=== PATIENT | female | born 1940 | race Caucasian/White ===

== ENCOUNTER → 2017-12-02 | Outpatient (CLI) | payer MEDICARE ==
[~2017-12-02] MED LIST: ARTHROTEC 75 T1 EACH PO; ASPIRIN81 M2 PO; FISH OIL 1,2001 EAC5 PO; HYDROCODONE-AP1 EACH PO; IOPAMIDOL 370 MG/ML 200 ML INFUS..BTL INJ ONE; MECLIZINE HCL12.5 MG PO; POTASSIUM GLUCONATE PO; SODIUM CHLORIDE 0.9% 250ML 500 ML ONE; SODIUM CHLORIDE 0.9% 50ML 50 ML ONE; VIT D3 PO; VITAMIN E PO; Z ALPRAZOLAM PO; Z CO Q PO; Z.0.B-12250 MCG; Z.0.DICYCLOMINE HCL1 PO; Z.0.FOLIC ACID0.4 MG PO; Z.0.FUROSEMIDE40 MG PO; Z.0.LOMOTIL TABLET1 PO; Z.0.MECLIZINE HCL12. PO; Z.0.NEXIUM40 MG PO; Z.0.SERTRALINE HCL10 PO; Z.0.SINGULAIR10 MG PO; Z.0.TRAZODONE HCL100 PO; Z.0.VITAMIN C500 M1 PO; Z.1.CENTRUM SILVER1 PO; Z.1.LEVOTHYROXINE100 PO; Z.1.TIZANIDINE HCL4 PO; Z.2.METFORMIN HCL500 PO; [UNRECOGNIZED DRUG - OTHER] NS; [UNRECOGNIZED DRUG - OTHER] PO; [UNRECOGNIZED DRUG - OTHER] PO
[2017-12-02 09:02] LABS: CREATININE, SERUM 1.02 mg/dL (0.57-1.11)
--- NOTE | 2017-12-02 12:25 | Diagnostic Imaging Report ---
PROCEDURE: CT ABDOMEN WITH CONTRAST TECHNIQUE: The abdomen was scanned utilizing a multidetector helical scanner from the diaphragm to the iliac crest after the IV administration of 100 cc of Isovue 370 and the oral administration of water. Coronal and sagittal multiplanar reformations were obtained. COMPARISON: None. INDICATIONS: ABNORMAL LIVER FUNCTION TESTS FINDINGS: LOWER THORAX: Normal. HEPATOBILIARY: No focal hepatic lesions. No biliary ductal dilatation. Normal gallbladder. SPLEEN: No splenomegaly. PANCREAS: No focal masses or ductal dilatation. ADRENALS: No adrenal nodules. KIDNEYS: No hydronephrosis, stones, or solid mass lesions. PERITONEUM / RETROPERITONEUM: No free air or fluid. LYMPH NODES: No lymphadenopathy. VESSELS: Aortoiliac atherosclerotic calcifications. GI TRACT: Visualized portions of the bowel demonstrate no distention or wall thickening. BONES AND SOFT TISSUES: Degenerative changes of the lower thoracic and upper lumbar spine. IMPRESSION: No acute abnormality of the abdomen. Dictated by: Seth Pitt M.D. on 12/02/2017 at 12:26 Electronically approved by: Seth Pitt M.D. on 12/02/2017 at 12:26
== END ==
LOC: CT 08:07
PROVIDERS: ATTEND Family Medicine
DX: R94.5 Abnormal results of liver function studies (principal)
CPT/HCPCS: 36415; 74160; 82565; 84520; J7050; Q9967

== ENCOUNTER → 2018-08-29 | Outpatient (CLI) | payer MEDICARE ==
[~2018-08-29] MED LIST changes: -IOPAMIDOL 370 MG/ML 200 ML INFUS..BTL INJ ONE; -SODIUM CHLORIDE 0.9% 250ML 500 ML ONE; -SODIUM CHLORIDE 0.9% 50ML 50 ML ONE
--- NOTE | 2018-08-29 12:01 | Diagnostic Imaging Report ---
PROCEDURE: X-RAY CHEST, TWO VIEWS COMPARISON: [facility], DX, CHEST 2 VIEWS, 02/25/2012, 12:46. INDICATIONS: COUGH, HEADACHE FINDINGS: LUNGS: No consolidations or edema. No change in the nodular calcified opacities in the apical regions. There is evidence of biapical volume loss. PLEURA: No effusions or pneumothorax. HEART & MEDIASTINUM: The heart is within normal size-limits. Tenting of the left hemidiaphragm is noted. BONES & SOFT TISSUES: No acute findings. Mild wedge deformity of one of the upper thoracic spine vertebral bodies is present and new compared to prior study. CONCLUSION: No acute thoracic abnormality. Kendrick Hernandez D.O. Dictated by: Kendrick Hernandez D.O. on 08/29/2018 at 12:12 Electronically approved by: Kendrick Hernandez D.O. on 08/29/2018 at 12:12
== END ==
LOC: RAD 10:45
DX: R05 Cough (principal)
CPT/HCPCS: 71046

== ENCOUNTER 2021-09-13 14:34 | Emergency (ER) | payer MEDICARE ==
[~2021-09-13] VITALS: Ht 167.6 cm; Wt 76.0 kg
[2021-09-13] MEDS ORDERED: TRAMADOL HCL 50 MG TAB PO STA (14:57)
[2021-09-13] MEDS ORDERED: OMEPRAZOLE20 MG (15:11)
[2021-09-13] MEDS ORDERED: DOXYCYCLINE HYC20 MG (15:11)
[2021-09-13] MEDS ORDERED: CLOPIDOGREL75 MG PO (15:11)
[2021-09-13] MEDS ORDERED: LEVOCETIRIZINE D5 MG (15:11)
[2021-09-13] MEDS ORDERED: VENLAFAXINE HC100 MG (15:11)
[2021-09-13] MEDS ORDERED: TRULICITY1.5 MG/0.5 (15:11)
[2021-09-13] MEDS ORDERED: EPINEPHRIN (15:11)
[2021-09-13] MEDS ORDERED: HUMALOG MI100 UNIT/2 SQ (15:11)
[2021-09-13] MEDS ORDERED: SYNTHROID75 MCG PO (15:11)
[2021-09-13] MEDS ORDERED: METOPROLOL SUCC25 MG PO (15:11)
[2021-09-13] MEDS ORDERED: DYMISTA NASAL S23 GM INH (15:11)
[2021-09-13] MEDS ORDERED: CLONIDINE HCL0.1 MG PO (15:11)
[2021-09-13] MEDS ORDERED: HYDROCHLOROTHIA25 MG (15:11)
[2021-09-13] MEDS ORDERED: LANTUS 3ML100 UNITS/ (15:11)
[2021-09-13] MEDS ORDERED: ULTRAM 50MG50 MG PO (15:32)
== END 2021-09-13 16:09 | disposition home or self-care (01) ==
LOC: FSED 14:47
DX: M25.562 Pain in left knee (principal); R11.0 Nausea; F41.9 Anxiety disorder, unspecified; M19.09 Primary osteoarthritis, other specified site; Z87.19 Personal history of other diseases of the digestive system
CPT/HCPCS: 99283

== ENCOUNTER 2022-04-13 15:15 | Inpatient (IN) | payer MEDICARE ==
[~2022-04-13] VITALS: Ht 167.6 cm; Wt 75.7 kg
[~2022-04-13 15:15] MED LIST changes: +CLONIDINE HCL0.1 MG PO; +CLOPIDOGREL75 MG PO; +DOXYCYCLINE HYC20 MG; +DYMISTA NASAL S23 GM INH; +EPINEPHRIN IM; +HUMALOG MI100 UNIT/2 SQ; +HYDROCHLOROTHIA25 MG PO; +LANTUS 3ML100 UNITS/ SQ; +LEVOCETIRIZINE D5 MG PO; +METOPROLOL SUCC25 MG PO; +OMEPRAZOLE20 MG PO; +SYNTHROID75 MCG PO; +TRULICITY1.5 MG/0.5; +ULTRAM 50MG50 MG PO; +VENLAFAXINE HC100 MG PO
[2022-04-13 16:52] LABS: BASOPHILS % 0.2 % (0.0-1.0); EOSINOPHILS % 0.2 % (0.0-6.0); HEMATOCRIT 25.5 % (34.2-44.1); HEMOGLOBIN 7.1 g/dL (12.0-16.0); LYMPHOCYTES # (AUTO) 1.2 (1.0-3.2); LYMPHOCYTES % 9.2 % (18.0-39.1); MEAN CORPUSCULAR HEMOGLOBIN 18.5 pg (28-32); MEAN CORPUSCULAR HGB CONC 27.8 g/dL (31-35); MEAN CORPUSCULAR VOLUME 66.6 fL (81-99); MONOCYTES # (AUTO) 0.8 (0.2-0.8); MONOCYTES % 6.5 % (4.4-11.3); NEUTROPHILS # (AUTO) 10.8 (2.1-6.9); NEUTROPHILS % 83.5 % (38.7-80.0); PLATELET COUNT 306 x10e3/uL (140-360); RED BLOOD COUNT 3.83 x10e6/uL (3.6-5.1); RED CELL DISTRIBUTION WIDTH 20.2 % (11.7-14.4)
[2022-04-13 17:04] LABS: ALBUMIN 3.4 g/dL (3.5-5.0); ALBUMIN/GLOBULIN RATIO 0.9 (0.8-2.0); ANION GAP 18.1 mmol/L (8-16); CALCIUM 9.3 mg/dL (8.4-10.2); CREATININE, SERUM 1.42 mg/dL (0.57-1.11); POTASSIUM 3.1 mmol/L (3.5-5.1)
[2022-04-13] MEDS: Vancomycin IV 1 GM in SODIUM CHLORIDE 0.9% 250ML 250 ML IV SCH (17:25)
[2022-04-13] MEDS ORDERED: ONDANSETRON HCL INJ 2MG/ML 2ML 2 MG/ML VIAL IV PRN (17:30)
[2022-04-13 19:36] VITALS: BP 84/70
[2022-04-13] MEDS ORDERED: MELOXICAM7.5 MG PO (20:33)
[2022-04-13] MEDS ORDERED: KAPSPARGO SPRIN25 MG PO (20:38)
[2022-04-13] MEDS ORDERED: GLUCOTROL XL5 MG PO (20:53)
[2022-04-13 21:00] VITALS: BP 84/70
[2022-04-13] MEDS ORDERED: TRULICITY4.5 MG/0.5 SQ (21:58)
[2022-04-13 23:30] VITALS: BP 84/70
[2022-04-13 23:57] VITALS: BP 106/47
[2022-04-14] VITALS (8 sets, daily range): BP systolic 122–134; BP diastolic 47–61
[2022-04-14] MEDS: HYDROCODONE/APAP 5MG-325MG TAB PO PRN ×2 (01:04→23:43)
[2022-04-14] MEDS: Vancomycin IV 1 GM in SODIUM CHLORIDE 0.9% 250ML 250 ML IV SCH ×2 (05:14→17:14)
[2022-04-14 06:18] LABS: ALBUMIN/GLOBULIN RATIO 0.9 (0.8-2.0); ALKALINE PHOSPHATASE 119 IU/L (40-150); ANION GAP 14.8 mmol/L (8-16); BLOOD UREA NITROGEN 19 mg/dL (7-26); BUN/CREATININE RATIO 16 (6-25); CALCIUM 8.8 mg/dL (8.4-10.2); CARBON DIOXIDE 27 mmol/L (22-29); CHLORIDE 100 mmol/L (98-107); CREATININE, SERUM 1.22 mg/dL (0.57-1.11); GLUCOSE 170 mg/dL (74-118); SODIUM 139 mmol/L (136-145)
[2022-04-14 06:19] LABS: ALANINE AMINOTRANSFERASE < 6 IU/L (0-55)
[2022-04-14 06:20] LABS: POTASSIUM 2.8 mmol/L (3.5-5.1)
[2022-04-14] MEDS ORDERED: DEXTROSE 50% SYRINGE 50 ML IV PRN (06:30)
[2022-04-14] MEDS ORDERED: MECLIZINE HCL 12.5 MG TAB PO PRN (06:30)
[2022-04-14] MEDS ORDERED: NON-FORMULARY MEDICATION (Levocetirizine Dihydrochloride 5 MG) PO PRN (06:30)
[2022-04-14] MEDS ORDERED: EPINEPHRINE HCL SYRINGE INJ PRN (06:30)
[2022-04-14] MEDS: LEVOTHYROXINE SODIUM 75 MCG TAB PO SCH (06:52)
[2022-04-14] MEDS ORDERED: POTASSIUM CHLORIDE 20 MEQ TAB CR PO ONE ×3 (07:00→08:00)
[2022-04-14] MEDS ORDERED: LORATADINE 10 MG TAB PO PRN (07:15)
[2022-04-14] MEDS: GLIPIZIDE 5 MG TAB ER PO SCH (08:19)
[2022-04-14] MEDS: PANTOPRAZOLE SOD 40 MG TABEC PO SCH (08:19)
[2022-04-14] MEDS: INSULIN REGULAR, HUMAN 100 UNIT/1 ML SQ SCH ×4 (08:20→22:19)
[2022-04-14] MEDS: VENLAFAXINE HCL 75 MG TAB PO SCH (08:40)
[2022-04-14] MEDS: MELOXICAM 7.5 MG TAB PO SCH (08:41)
[2022-04-14] MEDS: MONTELUKAST SODIUM 10 MG TAB PO SCH (08:41)
[2022-04-14] MEDS: CLONIDINE HCL 0.1 MG TAB PO SCH ×2 (08:42→17:15)
[2022-04-14] MEDS: HYDROCHLOROTHIAZIDE 25 MG TAB PO SCH (08:42)
[2022-04-14] MEDS: CLOPIDOGREL BISULFATE 75 MG TAB PO SCH (08:42)
[2022-04-14] MEDS ORDERED: METOPROLOL SUCCINATE 25 MG PO SCH (09:00)
[2022-04-14] MEDS: INSULIN GLARGINE 100 UNITS/ML VIAL SQ SCH (09:37)
[2022-04-14] MEDS: INS LISP PRO/LISP HUMAN 75/25 100 UNITS/ML VIAL SC SCH ×3 (09:38→17:00)
[2022-04-14] MEDS ORDERED: METOPROLOL SUCCINATE 25 MG TAB XL PO SCH (10:00)
[2022-04-14 12:35] LABS: FREE THYROXINE INDEX 2.4341 (1.4-3.8); THYROID STIMULATING HORMONE 0.396 uIU/mL (0.350-4.940)
[2022-04-14] MEDS: METOPROLOL SUCCINATE 25 MG TAB XL PO SCH (22:16)
[2022-04-14] MEDS: ALPRAZOLAM 0.25 MG TAB PO PRN (23:42)
[2022-04-15 04:28] VITALS: BP 133/59
[2022-04-15 04:59] LABS: BASOPHILS # (AUTO) 0.1 (0.0-0.1); BASOPHILS % 0.9 % (0.0-1.0); EOSINOPHILS # (AUTO) 0.3 (0.0-0.4); EOSINOPHILS % 4.3 % (0.0-6.0); HEMATOCRIT 24.7 % (34.2-44.1); LYMPHOCYTES # (AUTO) 1.5 (1.0-3.2); LYMPHOCYTES % 23.4 % (18.0-39.1); MEAN CORPUSCULAR HEMOGLOBIN 18.4 pg (28-32); MEAN CORPUSCULAR HGB CONC 27.1 g/dL (31-35); MEAN CORPUSCULAR VOLUME 67.9 fL (81-99); MONOCYTES # (AUTO) 0.6 (0.2-0.8); NEUTROPHILS # (AUTO) 4.1 (2.1-6.9); NEUTROPHILS % 61.9 % (38.7-80.0); PLATELET COUNT 268 x10e3/uL (140-360); RED BLOOD COUNT 3.64 x10e6/uL (3.6-5.1); RED CELL DISTRIBUTION WIDTH 20.1 % (11.7-14.4)
[2022-04-15 05:05] LABS: HEMOGLOBIN 6.7 g/dL (12.0-16.0)
[2022-04-15 05:20] LABS: ANION GAP 14.6 mmol/L (8-16); CALCIUM 9.2 mg/dL (8.4-10.2); POTASSIUM 3.6 mmol/L (3.5-5.1)
[2022-04-15] MEDS: Vancomycin IV 1 GM in SODIUM CHLORIDE 0.9% 250ML 250 ML IV SCH (06:00)
[2022-04-15] MEDS ORDERED: SODIUM CHLORIDE 0.9% 250ML 250 ML IV ONE (06:30)
[2022-04-15] MEDS ORDERED: DIPHENHYDRAMINE HCL INJ 50 MG/ML VIAL IV ONE (06:30)
[2022-04-15] MEDS: LEVOTHYROXINE SODIUM 75 MCG TAB PO SCH (06:45)
[2022-04-15] MEDS: INSULIN REGULAR, HUMAN 100 UNIT/1 ML SQ SCH ×4 (07:30→21:00)
[2022-04-15] MEDS: PANTOPRAZOLE SOD 40 MG TABEC PO SCH (07:30)
[2022-04-15 08:00] VITALS: BP 136/65
[2022-04-15] MEDS: GLIPIZIDE 5 MG TAB ER PO SCH (08:00)
[2022-04-15 08:30] VITALS: BP 136/65
[2022-04-15] MEDS: VENLAFAXINE HCL 75 MG TAB PO SCH (09:27)
[2022-04-15] MEDS: CLOPIDOGREL BISULFATE 75 MG TAB PO SCH (09:27)
[2022-04-15] MEDS: MONTELUKAST SODIUM 10 MG TAB PO SCH (09:27)
[2022-04-15] MEDS: METOPROLOL SUCCINATE 25 MG TAB XL PO SCH ×2 (09:28→21:04)
[2022-04-15] MEDS: MELOXICAM 7.5 MG TAB PO SCH (09:28)
[2022-04-15] MEDS: HYDROCHLOROTHIAZIDE 25 MG TAB PO SCH (09:29)
[2022-04-15] MEDS: INS LISP PRO/LISP HUMAN 75/25 100 UNITS/ML VIAL SC SCH ×3 (09:37→16:30)
[2022-04-15] MEDS: INSULIN GLARGINE 100 UNITS/ML VIAL SQ SCH (09:41)
[2022-04-15] MEDS: CLONIDINE HCL 0.1 MG TAB PO SCH ×2 (09:42→16:01)
[2022-04-15] MEDS ORDERED: ONDANSETRON HCL 4 MG ORAL DISINTEGRATING TAB PO PRN (11:00)
[2022-04-15 11:47] VITALS: BP 121/42
[2022-04-15 16:50] VITALS: BP 130/58
[2022-04-15 20:00] VITALS: BP 141/65
[2022-04-15] MEDS ORDERED: SODIUM CHLORIDE 0.9% 250ML 250 ML ONE (20:43)
[2022-04-15] MEDS: ALPRAZOLAM 0.25 MG TAB PO PRN (23:18)
[2022-04-15] MEDS: HYDROCODONE/APAP 5MG-325MG TAB PO PRN (23:19)
[2022-04-16] VITALS (7 sets, daily range): BP systolic 135–168; BP diastolic 59–82
[2022-04-16] MEDS: LEVOTHYROXINE SODIUM 75 MCG TAB PO SCH (06:08)
[2022-04-16] MEDS: INSULIN REGULAR, HUMAN 100 UNIT/1 ML SQ SCH ×4 (07:30→21:00)
[2022-04-16] MEDS: INS LISP PRO/LISP HUMAN 75/25 100 UNITS/ML VIAL SC SCH ×3 (08:00→17:08)
[2022-04-16] MEDS: GLIPIZIDE 5 MG TAB ER PO SCH ×2 (08:00→09:52)
[2022-04-16] MEDS: PANTOPRAZOLE SOD 40 MG TABEC PO SCH (08:28)
[2022-04-16] MEDS: INSULIN GLARGINE 100 UNITS/ML VIAL SQ SCH (09:00)
[2022-04-16 09:02] LABS: BASOPHILS # (AUTO) 0.1 (0.0-0.1); BASOPHILS % 0.8 % (0.0-1.0); EOSINOPHILS # (AUTO) 0.4 (0.0-0.4); EOSINOPHILS % 4.9 % (0.0-6.0); HEMATOCRIT 32.4 % (34.2-44.1); HEMOGLOBIN 9.4 g/dL (12.0-16.0); LYMPHOCYTES % 26.3 % (18.0-39.1); MEAN CORPUSCULAR HEMOGLOBIN 20.8 pg (28-32); MEAN CORPUSCULAR VOLUME 71.5 fL (81-99); MONOCYTES # (AUTO) 0.6 (0.2-0.8); MONOCYTES % 8.4 % (4.4-11.3); NEUTROPHILS # (AUTO) 4.4 (2.1-6.9); NEUTROPHILS % 59.2 % (38.7-80.0); PLATELET COUNT 259 x10e3/uL (140-360); RED BLOOD COUNT 4.53 x10e6/uL (3.6-5.1)
[2022-04-16] MEDS: VENLAFAXINE HCL 75 MG TAB PO SCH (09:52)
[2022-04-16] MEDS: MONTELUKAST SODIUM 10 MG TAB PO SCH (09:52)
[2022-04-16] MEDS: MELOXICAM 7.5 MG TAB PO SCH (09:53)
[2022-04-16] MEDS: HYDROCHLOROTHIAZIDE 25 MG TAB PO SCH (09:53)
[2022-04-16] MEDS: CLOPIDOGREL BISULFATE 75 MG TAB PO SCH (09:53)
[2022-04-16] MEDS: CLONIDINE HCL 0.1 MG TAB PO SCH ×2 (09:54→17:12)
[2022-04-16] MEDS: METOPROLOL SUCCINATE 25 MG TAB XL PO SCH ×2 (09:54→21:00)
[2022-04-16] MEDS ORDERED: IRON DEXTRAN INJ 50 MG in SODIUM CHLORIDE 0.9% 100 ML IV ONE (17:30)
[2022-04-16] MEDS: ALPRAZOLAM 0.25 MG TAB PO PRN (22:38)
[2022-04-16] MEDS: HYDROCODONE/APAP 5MG-325MG TAB PO PRN (22:40)
[2022-04-17] VITALS: BP 136/68
[2022-04-17 04:00] VITALS: BP 112/50
[2022-04-17] MEDS: LEVOTHYROXINE SODIUM 75 MCG TAB PO SCH (05:22)
[2022-04-17 07:07] LABS: BASOPHILS # (AUTO) 0.1 (0.0-0.1); BASOPHILS % 0.7 % (0.0-1.0); EOSINOPHILS # (AUTO) 0.3 (0.0-0.4); EOSINOPHILS % 3.8 % (0.0-6.0); HEMATOCRIT 33.7 % (34.2-44.1); HEMOGLOBIN 9.8 g/dL (12.0-16.0); LYMPHOCYTES # (AUTO) 2.3 (1.0-3.2); LYMPHOCYTES % 25.6 % (18.0-39.1); MEAN CORPUSCULAR HEMOGLOBIN 20.7 pg (28-32); MEAN CORPUSCULAR HGB CONC 29.1 g/dL (31-35); MEAN CORPUSCULAR VOLUME 71.1 fL (81-99); MONOCYTES # (AUTO) 0.6 (0.2-0.8); MONOCYTES % 6.8 % (4.4-11.3); NEUTROPHILS # (AUTO) 5.5 (2.1-6.9); NEUTROPHILS % 62.9 % (38.7-80.0); PLATELET COUNT 297 x10e3/uL (140-360); RED BLOOD COUNT 4.74 x10e6/uL (3.6-5.1); RED CELL DISTRIBUTION WIDTH 21.1 % (11.7-14.4)
[2022-04-17] MEDS: INSULIN REGULAR, HUMAN 100 UNIT/1 ML SQ SCH ×4 (07:30→20:28)
[2022-04-17 07:38] LABS: ANION GAP 18.7 mmol/L (8-16); CALCIUM 9.2 mg/dL (8.4-10.2); CREATININE, SERUM 0.97 mg/dL (0.57-1.11); POTASSIUM 3.7 mmol/L (3.5-5.1)
[2022-04-17] MEDS: INS LISP PRO/LISP HUMAN 75/25 100 UNITS/ML VIAL SC SCH ×3 (08:00→17:00)
[2022-04-17 08:30] VITALS: BP 123/57
[2022-04-17] MEDS: INSULIN GLARGINE 100 UNITS/ML VIAL SQ SCH (09:00)
[2022-04-17] MEDS ORDERED: DULAGLUTIDE SQ SCH (09:00)
[2022-04-17] MEDS: CLONIDINE HCL 0.1 MG TAB PO SCH ×2 (09:00→17:00)
[2022-04-17] MEDS: PANTOPRAZOLE SOD 40 MG TABEC PO SCH (10:00)
[2022-04-17] MEDS: METOPROLOL SUCCINATE 25 MG TAB XL PO SCH ×2 (10:30→21:19)
[2022-04-17] MEDS: HYDROCHLOROTHIAZIDE 25 MG TAB PO SCH (10:30)
[2022-04-17] MEDS: MONTELUKAST SODIUM 10 MG TAB PO SCH (10:30)
[2022-04-17] MEDS: VENLAFAXINE HCL 75 MG TAB PO SCH (10:30)
[2022-04-17] MEDS: MELOXICAM 7.5 MG TAB PO SCH (10:30)
[2022-04-17] MEDS: CLOPIDOGREL BISULFATE 75 MG TAB PO SCH (10:30)
[2022-04-17 12:46] VITALS: BP 143/83
[2022-04-17 16:49] VITALS: BP 135/73
[2022-04-17 20:00] VITALS: BP 144/67
[2022-04-17] MEDS: HYDROCODONE/APAP 5MG-325MG TAB PO PRN (21:25)
[2022-04-18 04:00] VITALS: BP 132/57
[2022-04-18 05:22] LABS: BASOPHILS # (AUTO) 0.1 (0.0-0.1); BASOPHILS % 0.7 % (0.0-1.0); EOSINOPHILS # (AUTO) 0.5 (0.0-0.4); EOSINOPHILS % 5.2 % (0.0-6.0); HEMATOCRIT 32.6 % (34.2-44.1); HEMOGLOBIN 9.9 g/dL (12.0-16.0); LYMPHOCYTES # (AUTO) 2.2 (1.0-3.2); MEAN CORPUSCULAR HEMOGLOBIN 20.8 pg (28-32); MEAN CORPUSCULAR HGB CONC 30.4 g/dL (31-35); MEAN CORPUSCULAR VOLUME 68.5 fL (81-99); MONOCYTES # (AUTO) 0.7 (0.2-0.8); MONOCYTES % 7.5 % (4.4-11.3); NEUTROPHILS # (AUTO) 5.3 (2.1-6.9); NEUTROPHILS % 61.1 % (38.7-80.0); PLATELET COUNT 253 x10e3/uL (140-360); RED BLOOD COUNT 4.76 x10e6/uL (3.6-5.1); RED CELL DISTRIBUTION WIDTH 21.7 % (11.7-14.4)
[2022-04-18] MEDS: LEVOTHYROXINE SODIUM 75 MCG TAB PO SCH (05:35)
[2022-04-18 05:45] LABS: ALBUMIN 2.9 g/dL (3.5-5.0); ALBUMIN/GLOBULIN RATIO 0.9 (0.8-2.0); ANION GAP 18.5 mmol/L (8-16); CALCIUM 9.2 mg/dL (8.4-10.2); CREATININE, SERUM 1.01 mg/dL (0.57-1.11); POTASSIUM 3.5 mmol/L (3.5-5.1)
[2022-04-18] MEDS: INSULIN REGULAR, HUMAN 100 UNIT/1 ML SQ SCH ×4 (07:30→21:00)
[2022-04-18] MEDS: INS LISP PRO/LISP HUMAN 75/25 100 UNITS/ML VIAL SC SCH ×3 (08:00→17:00)
[2022-04-18 08:27] VITALS: BP 146/70
[2022-04-18] MEDS: VENLAFAXINE HCL 75 MG TAB PO SCH (09:00)
[2022-04-18] MEDS: HYDROCHLOROTHIAZIDE 25 MG TAB PO SCH (09:00)
[2022-04-18] MEDS: INSULIN GLARGINE 100 UNITS/ML VIAL SQ SCH (09:00)
[2022-04-18] MEDS ORDERED: POTASSIUM CHLORIDE 10MEQ EA PO ONE (10:00)
[2022-04-18] MEDS: GLIPIZIDE 5 MG TAB ER PO SCH (11:04)
[2022-04-18] MEDS: MELOXICAM 7.5 MG TAB PO SCH (11:04)
[2022-04-18] MEDS: CLOPIDOGREL BISULFATE 75 MG TAB PO SCH (11:05)
[2022-04-18] MEDS: CLONIDINE HCL 0.1 MG TAB PO SCH ×2 (11:05→17:23)
[2022-04-18] MEDS: METOPROLOL SUCCINATE 25 MG TAB XL PO SCH ×2 (11:06→21:11)
[2022-04-18] MEDS: PANTOPRAZOLE SOD 40 MG TABEC PO SCH (11:08)
[2022-04-18] MEDS: MONTELUKAST SODIUM 10 MG TAB PO SCH (11:08)
[2022-04-18 13:24] VITALS: BP 146/73
[2022-04-18 17:32] VITALS: BP 128/68
[2022-04-18 20:00] VITALS: BP 128/67
[2022-04-19] VITALS (8 sets, daily range): BP systolic 118–174; BP diastolic 52–78
[2022-04-19] MEDS: LEVOTHYROXINE SODIUM 75 MCG TAB PO SCH (05:22)
[2022-04-19 05:47] LABS: BASOPHILS # (AUTO) 0.1 (0.0-0.1); BASOPHILS % 0.9 % (0.0-1.0); EOSINOPHILS # (AUTO) 0.5 (0.0-0.4); EOSINOPHILS % 6.1 % (0.0-6.0); HEMATOCRIT 31.4 % (34.2-44.1); HEMOGLOBIN 9.3 g/dL (12.0-16.0); LYMPHOCYTES # (AUTO) 2.2 (1.0-3.2); LYMPHOCYTES % 26.1 % (18.0-39.1); MEAN CORPUSCULAR HEMOGLOBIN 20.6 pg (28-32); MEAN CORPUSCULAR HGB CONC 29.6 g/dL (31-35); MEAN CORPUSCULAR VOLUME 69.6 fL (81-99); MONOCYTES # (AUTO) 0.6 (0.2-0.8); MONOCYTES % 7.4 % (4.4-11.3); PLATELET COUNT 279 x10e3/uL (140-360); RED BLOOD COUNT 4.51 x10e6/uL (3.6-5.1); RED CELL DISTRIBUTION WIDTH 21.8 % (11.7-14.4)
[2022-04-19 06:09] LABS: ANION GAP 14.8 mmol/L (8-16); CALCIUM 9.2 mg/dL (8.4-10.2); CREATININE, SERUM 0.9 mg/dL (0.57-1.11); POTASSIUM 3.8 mmol/L (3.5-5.1)
[2022-04-19] MEDS: INSULIN REGULAR, HUMAN 100 UNIT/1 ML SQ SCH ×4 (07:30→20:48)
[2022-04-19] MEDS: HYDROCHLOROTHIAZIDE 25 MG TAB PO SCH (08:49)
[2022-04-19] MEDS: GLIPIZIDE 5 MG TAB ER PO SCH (08:50)
[2022-04-19] MEDS: MONTELUKAST SODIUM 10 MG TAB PO SCH (08:51)
[2022-04-19] MEDS: MELOXICAM 7.5 MG TAB PO SCH (08:51)
[2022-04-19] MEDS: CLOPIDOGREL BISULFATE 75 MG TAB PO SCH (08:52)
[2022-04-19] MEDS: VENLAFAXINE HCL 75 MG TAB PO SCH (08:52)
[2022-04-19] MEDS: PANTOPRAZOLE SOD 40 MG TABEC PO SCH (08:53)
[2022-04-19] MEDS: CLONIDINE HCL 0.1 MG TAB PO SCH ×2 (08:53→18:09)
[2022-04-19] MEDS: METOPROLOL SUCCINATE 25 MG TAB XL PO SCH ×2 (08:56→20:49)
[2022-04-19] MEDS: INS LISP PRO/LISP HUMAN 75/25 100 UNITS/ML VIAL SC SCH ×3 (09:48→16:44)
[2022-04-19] MEDS: INSULIN GLARGINE 100 UNITS/ML VIAL SQ SCH (09:50)
[2022-04-19 11:18] LABS: EOSINOPHILS % (MANUAL) 2 % (0-7); LYMPHOCYTES % (MANUAL) 32 % (19-48); MONOCYTES % (MANUAL) 4 % (3.4-9.0); NEUTROPHILS % (MANUAL) 61 % (40-74); PLATELET ESTIMATE ADEQUATE
[2022-04-19 11:19] LABS: PLATELET MORPHOLOGY COMMENT NORMAL; POLYCHROMASIA FEW; RBC MORPHOLOGY COMMENT NORMAL
[2022-04-19 11:23] LABS: ANISOCYTOSIS MODERATE; OVALOCYTES FEW; POIKILOCYTOSIS SLIGHT
[2022-04-19 11:24] LABS: HYPOCHROMASIA SLIGHT; MICROCYTOSIS MODERATE
[2022-04-20] VITALS (7 sets, daily range): BP systolic 111–167; BP diastolic 57–83
[2022-04-20] MEDS: LEVOTHYROXINE SODIUM 75 MCG TAB PO SCH (06:31)
[2022-04-20] MEDS: INSULIN REGULAR, HUMAN 100 UNIT/1 ML SQ SCH ×3 (07:30→16:28)
[2022-04-20] MEDS: INS LISP PRO/LISP HUMAN 75/25 100 UNITS/ML VIAL SC SCH ×3 (08:00→16:56)
[2022-04-20] MEDS: INSULIN GLARGINE 100 UNITS/ML VIAL SQ SCH (09:00)
[2022-04-20] MEDS ORDERED: Vancomycin IV 1 GM in SODIUM CHLORIDE 0.9% 250ML 250 ML IV SCH (09:00)
[2022-04-20] MEDS: METOPROLOL SUCCINATE 25 MG TAB XL PO SCH ×2 (09:26→16:57)
[2022-04-20] MEDS: MELOXICAM 7.5 MG TAB PO SCH (09:26)
[2022-04-20] MEDS: PANTOPRAZOLE SOD 40 MG TABEC PO SCH (09:27)
[2022-04-20] MEDS: VENLAFAXINE HCL 75 MG TAB PO SCH (09:27)
[2022-04-20] MEDS: CLONIDINE HCL 0.1 MG TAB PO SCH ×2 (09:27→16:57)
[2022-04-20] MEDS: GLIPIZIDE 5 MG TAB ER PO SCH (09:27)
[2022-04-20] MEDS: CLOPIDOGREL BISULFATE 75 MG TAB PO SCH (09:27)
[2022-04-20] MEDS: MONTELUKAST SODIUM 10 MG TAB PO SCH (09:27)
[2022-04-20] MEDS: HYDROCHLOROTHIAZIDE 25 MG TAB PO SCH (09:27)
[2022-04-20] MEDS ORDERED: KEFLEX125 MG/5 M PO (15:50)
[2022-04-20] MEDS ORDERED: DOXYCYCLINE MO100 MG PO (15:51)
== END 2022-04-20 17:09 | disposition home health service (06) | DRG 623 ==
LOC: ER 15:55 → ERHOLD 17:21 → MED/SURG 18:33
PROC: 30233N1 Transfusion of Nonautologous Red Blood Cells into Peripheral Vein, Percutaneous Approach (ICD-10-PCS; 2022-04-15)
PROC: 0JBR0ZZ Excision of Left Foot Subcutaneous Tissue and Fascia, Open Approach (ICD-10-PCS; principal; 2022-04-16)
DX: E11.621 Type 2 diabetes mellitus with foot ulcer (principal); L03.116 Cellulitis of left lower limb; L97.529 Non-pressure chronic ulcer of other part of left foot with unspecified severity; D63.8 Anemia in other chronic diseases classified elsewhere; E11.69 Type 2 diabetes mellitus with other specified complication; E11.42 Type 2 diabetes mellitus with diabetic polyneuropathy; I11.9 Hypertensive heart disease without heart failure; I25.10 Atherosclerotic heart disease of native coronary artery without angina pectoris; M20.12 Hallux valgus (acquired), left foot; M21.612 Bunion of left foot; J45.909 Unspecified asthma, uncomplicated; K21.9 Gastro-esophageal reflux disease without esophagitis; F32.9 Major depressive disorder, single episode, unspecified; E78.5 Hyperlipidemia, unspecified; D50.9 Iron deficiency anemia, unspecified; E87.6 Hypokalemia; Z90.710 Acquired absence of both cervix and uterus; Z89.422 Acquired absence of other left toe(s); Z88.1 Allergy status to other antibiotic agents; Z88.5 Allergy status to narcotic agent; Z88.8 Allergy status to other drugs, medicaments and biological substances; Z91.09 Other allergy status, other than to drugs and biological substances
CPT/HCPCS: 0223U; 36415; 71046; 80048; 80053; 80202; 82607; 82948; 83540; 84436; 84443; 84466; 84479; 85025; 85045; 86850; 86900; 86920; 87040; 93925; 99251; 99284; J1750; J1815; J1817; J3370; J7050; P9016

== ENCOUNTER 2022-05-12 12:01 | Emergency (ER) | payer MEDICARE ==
[~2022-05-12] VITALS: Ht 320 cm; Wt 75.7 kg
== END 2022-05-12 12:40 | disposition home or self-care (01) ==
LOC: ER 12:11
DX: Z47.89 Encounter for other orthopedic aftercare (principal); I10 Essential (primary) hypertension; E11.9 Type 2 diabetes mellitus without complications; E03.9 Hypothyroidism, unspecified; F41.9 Anxiety disorder, unspecified
CPT/HCPCS: 99283

== ENCOUNTER → 2022-05-12 | Outpatient (CLI) | payer MEDICARE ==
[~2022-05-12] MED LIST changes: +DOXYCYCLINE MO100 MG PO; +GLUCOTROL XL5 MG PO; +KAPSPARGO SPRIN25 MG PO; +KEFLEX125 MG/5 M PO; +MELOXICAM7.5 MG PO; +TRULICITY4.5 MG/0.5 SQ
== END ==
LOC: RAD 11:19
DX: M25.512 Pain in left shoulder (principal); M89.8X1 Other specified disorders of bone, shoulder; Z91.81 History of falling

== ENCOUNTER 2022-06-09 17:17 | Emergency (ER) | payer MEDICARE ==
[~2022-06-09] VITALS: Ht 320 cm; Wt 75.7 kg
[2022-06-09 17:39] LABS: BASOPHILS # (AUTO) 0.1 (0.0-0.1); BASOPHILS % 0.5 % (0.0-1.0); EOSINOPHILS # (AUTO) 0.8 (0.0-0.4); EOSINOPHILS % 7.2 % (0.0-6.0); HEMATOCRIT 36.9 % (34.2-44.1); LYMPHOCYTES # (AUTO) 1.2 (1.0-3.2); LYMPHOCYTES % 10.8 % (18.0-39.1); MEAN CORPUSCULAR HEMOGLOBIN 24.6 pg (28-32); MEAN CORPUSCULAR HGB CONC 29.8 g/dL (31-35); MEAN CORPUSCULAR VOLUME 82.6 fL (81-99); MONOCYTES # (AUTO) 0.8 (0.2-0.8); MONOCYTES % 7.8 % (4.4-11.3); NEUTROPHILS # (AUTO) 7.9 (2.1-6.9); NEUTROPHILS % 73.3 % (38.7-80.0); PLATELET COUNT 310 x10e3/uL (140-360); RED BLOOD COUNT 4.47 x10e6/uL (3.6-5.1); RED CELL DISTRIBUTION WIDTH 24.7 % (11.7-14.4)
[2022-06-09] MEDS ORDERED: DEXTROSE 50% SYRINGE 50 ML IV STA (17:42)
[2022-06-09] MEDS ORDERED: DEXTROSE 5%/0.9% SOD CHL 1,000 ML IV ONE (17:45)
[2022-06-09] MEDS ORDERED: DEXTROSE 50% SYRINGE 50 ML IV ONE (17:58)
[2022-06-09 18:04] LABS: ALBUMIN 3.6 g/dL (3.5-5.0); ALBUMIN/GLOBULIN RATIO 1.1 (0.8-2.0); ANION GAP 17.4 mmol/L (8-16); CALCIUM 9.7 mg/dL (8.4-10.2); CREATININE, SERUM 0.95 mg/dL (0.57-1.11); POTASSIUM 3.4 mmol/L (3.5-5.1)
[2022-06-09 19:57] LABS: CLARITY,URINE SL CLOUDY (CLEAR); COLOR,URINE YELLOW (YELLOW); KETONES,URINE NEGATIVE (NEGATIVE); LEUKOCYTE ESTERASE ,URINE LARGE (NEGATIVE); NITRITE,URINE POSITIVE (NEGATIVE); PROTEIN,URINE DIPSTICK NEGATIVE (NEGATIVE); URINE UROBILINOGEN 0.2 mg/dL (0.2 - 1)
[2022-06-09 20:02] LABS: BACTERIA,URINE MODERATE /HPF
[2022-06-09 20:07] LABS: ANISOCYTOSIS SLIGHT; HYPOCHROMASIA SLIGHT; PLATELET ESTIMATE ADEQUATE; PLATELET MORPHOLOGY COMMENT NORMAL; RBC MORPHOLOGY COMMENT NORMAL
[2022-06-09 20:40] VITALS: BP 137/83
== END 2022-06-09 20:42 | disposition home or self-care (01) ==
LOC: ER 17:22
DX: E11.649 Type 2 diabetes mellitus with hypoglycemia without coma (principal); I10 Essential (primary) hypertension; E03.9 Hypothyroidism, unspecified; F41.9 Anxiety disorder, unspecified
CPT/HCPCS: 36415; 80053; 81001; 82948; 85025; 99284; J7042; J7799